=== PATIENT | female | born 1980 | race Caucasian/White ===

== ENCOUNTER 2020-07-27 07:33 | Outpatient (CLI) | payer OTHER ==
[2020-07-27] MEDS ORDERED: ROPivacaine/PF 0.2%, 10 ML ONE (07:48)
[2020-07-27] MEDS ORDERED: LIDOCAINE-MPF 1%, 5ML ONE (07:49)
[2020-07-27] MEDS ORDERED: OMNIPAQUE 300 MG/ML, 10ML VIAL ONE (08:00)
[2020-07-27] MEDS ORDERED: GADOTERATE 5 MMOL/10 ML VIAL ONE (08:00)
== END 2020-07-27 23:59 | disposition home or self-care (01) ==
LOC: RAD 07:33
PROVIDERS: ATTEND Physician Assistant Surgical
DX: M25.551 Pain in right hip (principal); Z79.899 Other long term (current) drug therapy; Z82.49 Family history of ischemic heart disease and other diseases of the circulatory system
CPT/HCPCS: 27093; 73525; 73722; A9575; Q9967; J2795